=== PATIENT | male | born 1975 | race Caucasian/White ===

== ENCOUNTER 2020-06-02 09:07 | Emergency (ER) | payer OTHER ==
[2020-06-02 09:39] LABS: HEMOGLOBIN 16.5 gm/dl (14.0-17.5); RED BLOOD COUNT 5.2 M/UL (4.20-5.50); WHITE BLOOD COUNT 14.7 K/UL (4.5-11.0)
[2020-06-02 10:10] LABS: BUN/CREATININE RATIO 11 (0-10)
[2020-06-02] MEDS ORDERED: ASPIRIN CHEWABL81 MG PO (11:10)
== END 2020-06-02 13:00 | disposition home or self-care (01) ==
LOC: ER1 09:07
PROVIDERS: Emergency Medicine
DX: R00.2 Palpitations (principal)
CPT/HCPCS: 36415; 71045; 80053; 82550; 82553; 83874; 83880; 84439; 84443; 84484; 85025; 85379; 93005; 93242; 99285